=== PATIENT | female | born 1955 | race Caucasian/White ===

== ENCOUNTER 2017-02-06 16:55 | Inpatient (IN) | payer OTHER, MEDICAID ==
[~2017-02-06] VITALS: Ht 152.4 cm; Wt 65.0 kg
[~2017-02-06 16:55] MED LIST: AMBIEN10 MG PO; ATIVAN1 MG PO; ATIVAN2 MG PO; BENADRYL25 MG PO; CELEXA40 MG PO; CIPROFLOXACIN500 MG PO; CLARITIN-D 12 H1 TAB PO; DITROPAN5 MG PO; FERROUS SULFAT325 M1 PO; FLEXERIL10 MG PO; FLONASE ALLERG9.9 ML NAS; MOTRIN800 MG PO; NEURONTIN400 MG PO; NEURONTIN600 MG PO; NORFLEX100 MG PO; PRAVASTATIN SOD40 MG PO; PREDNISONE10 MG PO; TRAMADOL HCL50 MG PO; TRAMADOL50 MG PO; TRAZADONE HYDR100 MG PO; ULTRAM50 MG PO; VISTARIL50 MG PO
[2017-02-06 18:00] LABS: BASO % 0.3 % (0.0-1.0); EOS # 0.1 10*3/uL (0.0-0.4); EOS % 1.3 % (1.0-4.0); HEMATOCRIT 44.8 % (37.0-47.0); HEMOGLOBIN 15.1 g/dl (12.0-16.0); LYMPH # 2.6 10*3/uL (1.3-4.4); LYMPH % 43.8 % (27.0-41.0); MEAN CELL VOLUME 102.3 fl (81.0-99.0); MEAN CORPUSCULAR HGB 34.5 pg (27.0-31.0); MEAN CORPUSCULAR HGB CONC 33.7 g/dl (33.0-37.0); MEAN PLATELET VOLUME 11.3 fl (9.6-12.3); MONO # 0.4 10*3/uL (0.1-1.0); MONO % 7.4 % (3.0-9.0); NEUT # 2.8 10*3/uL (2.3-7.9); PLATELET COUNT AUTOMATED 185 10*3/uL (130-400); RED BLOOD COUNT 4.38 10*6/uL (4.10-5.10); RED CELL DISTRI WIDTH 13.2 % (0-14.5); WHITE BLOOD COUNT 5.9 10*3/uL (4.8-10.8)
[2017-02-06 18:15] LABS: PROTHROMBIN TIME 10.1 SECONDS (9.0-12.4)
[2017-02-06 18:16] LABS: ALBUMIN 3.4 gm/dl (3.1-4.5); ALKALINE PHOSPHATASE 112 U/L (45-117); BILIRUBIN, TOTAL 0.5 mg/dl (0.2-1.0); BUN 19 mg/dl (7-24); C-REACTIVE PROTEIN 0.68 MG/DL (0-0.3); CARBON DIOXIDE 26 mmol/L (21-32); CHLORIDE 106 mmol/L (98-107); CPK 30 U/L (26-192); EST GLOM FILT AFRICAN AMERICAN > 60 ml/min; GLUCOSE 95 mg/dL (65-99); MAGNESIUM 2.5 mg/dL (1.5-2.1); POTASSIUM 4.5 mmol/L (3.5-5.1); SGOT/AST 10 IU/L (3-35); SGPT/ALT 17 U/L (12-78); SODIUM 141 mmol/L (136-145); TOTAL PROTEIN 6.9 gm/dL (6.4-8.2)
[2017-02-06 18:17] LABS: CKMB < 0.5 ng/ml (0.5-3.6); TROPONIN I < 0.015 ng/ml (<0.045)
[2017-02-06] MEDS ORDERED: CARVEDILOL6.25 MG PO (18:28)
[2017-02-06 18:38] LABS: BILIRUBIN NEGATIVE (NEGATIVE); BLOOD NEGATIVE (NEGATIVE); CLARITY SL CLOUDY (CLEAR); COLOR YELLOW (YELLOW); GLUCOSE NEGATIVE (NEGATIVE); KETONE NEGATIVE (NEGATIVE); LEUKO ESTERASE TRACE (NEGATIVE); NITRITE NEGATIVE (NEGATIVE); PROTEIN TRACE (NEGATIVE)
[2017-02-06 18:45] LABS: BACTERIA 4+; EPITHELIAL CELLS 20-25; URINE REFLEX COMMENT YES (NO)
[2017-02-06] MEDS ORDERED: BENADRYL ALLERG25 M5 PO (22:37)
[2017-02-07 00:57] LABS: CPK 38 U/L (26-192)
[2017-02-07 01:02] LABS: CKMB < 0.5 ng/ml (0.5-3.6); TROPONIN I < 0.015 ng/ml (<0.045)
[2017-02-07 06:38] LABS: HEMATOCRIT 43.8 % (37.0-47.0); HEMOGLOBIN 14.8 g/dl (12.0-16.0); LYMPH # 0.6 10*3/uL (1.3-4.4); LYMPH % 18.7 % (27.0-41.0); MEAN CELL VOLUME 102.6 fl (81.0-99.0); MEAN CORPUSCULAR HGB 34.7 pg (27.0-31.0); MEAN CORPUSCULAR HGB CONC 33.8 g/dl (33.0-37.0); MEAN PLATELET VOLUME 11.2 fl (9.6-12.3); MONO # 0.1 10*3/uL (0.1-1.0); MONO % 1.7 % (3.0-9.0); NEUT # 2.4 10*3/uL (2.3-7.9); NEUT % 79.3 % (47.0-73.0); PLATELET COUNT AUTOMATED 173 10*3/uL (130-400); RED BLOOD COUNT 4.27 10*6/uL (4.10-5.10); RED CELL DISTRI WIDTH 13.2 % (0-14.5)
[2017-02-07 06:52] LABS: CPK 29 U/L (26-192)
[2017-02-07 06:56] LABS: CKMB < 0.5 ng/ml (0.5-3.6); TROPONIN I < 0.015 ng/ml (<0.045)
[2017-02-07 06:57] LABS: HEMOGLOBIN A1c 5.2 % (4.8-5.6)
[2017-02-07 07:10] LABS: PROTHROMBIN TIME 10.2 SECONDS (9.0-12.4)
[2017-02-07 07:11] LABS: ALBUMIN 3.3 gm/dl (3.1-4.5); BUN 17 mg/dl (7-24); CARBON DIOXIDE 22 mmol/L (21-32); CHLORIDE 107 mmol/L (98-107); EST GLOM FILT AFRICAN AMERICAN > 60 ml/min; GLUCOSE 148 mg/dL (65-99); MAGNESIUM 2.7 mg/dL (1.5-2.1); PHOSPHOROUS 3.5 mg/dL (2.5-4.9); POTASSIUM 4.1 mmol/L (3.5-5.1); SGOT/AST 9 IU/L (3-35); SGPT/ALT 16 U/L (12-78); SODIUM 141 mmol/L (136-145)
[2017-02-07 07:18] LABS: ALKALINE PHOSPHATASE 111 U/L (45-117); BILIRUBIN, TOTAL 0.2 mg/dl (0.2-1.0); FREE T4 0.85 ng/dl (0.76-1.46); HDL CHOLESTEROL 50 mg/dl (40-60); TOTAL PROTEIN 6.7 gm/dL (6.4-8.2); TRIGLYCERIDES 72 mg/dl (<150); VLDL CHOLESTEROL 14 mg/dL (6-40)
[2017-02-07 07:22] LABS: CHOLESTEROL 202 mg/dL (<200); LDL CHOLESTEROL 138 mg/dL (9-159)
[2017-02-07 08:44] LABS: VITAMIN D, 25-HYDROXY 10.5 ng/mL (30-100)
[2017-02-07 08:45] LABS: FOLIC ACID 7.54 ng/mL (>5.38)
[2017-02-07 12:18] LABS: CKMB < 0.5 ng/ml (0.5-3.6); CPK 32 U/L (26-192); TROPONIN I < 0.015 ng/ml (<0.045)
[2017-02-08] MEDS ORDERED: B12,B-12,B 12500 MC1 PO (10:59)
[2017-02-08] MEDS ORDERED: D-1000 185 MG-11 TAB PO (10:59)
[2017-02-08] MEDS ORDERED: DOXYCYCLINE100 M3 PO (10:59)
[2017-02-08] MEDS ORDERED: MUCINEX ER600 MG PO (10:59)
[2017-02-08] MEDS ORDERED: PREDNISONE10 MG PO (10:59)
== END 2017-02-08 13:22 | disposition home or self-care (01) | DRG 193 ==
LOC: ED 16:55 → EDHOLD 19:03 → 5E 19:03
PROVIDERS: Emergency Medicine; Family Medicine
DX: J18.9 Pneumonia, unspecified organism (principal); G93.41 Metabolic encephalopathy; E44.0 Moderate protein-calorie malnutrition; G62.9 Polyneuropathy, unspecified; E83.41 Hypermagnesemia; F17.210 Nicotine dependence, cigarettes, uncomplicated; M79.7 Fibromyalgia; R82.71 Bacteriuria; E53.8 Deficiency of other specified B group vitamins; E55.9 Vitamin D deficiency, unspecified; D75.89 Other specified diseases of blood and blood-forming organs; Z98.84 Bariatric surgery status; Z98.891 History of uterine scar from previous surgery; Z83.3 Family history of diabetes mellitus; Z82.49 Family history of ischemic heart disease and other diseases of the circulatory system; Z80.1 Family history of malignant neoplasm of trachea, bronchus and lung; Z90.49 Acquired absence of other specified parts of digestive tract; Z90.710 Acquired absence of both cervix and uterus; Z79.899 Other long term (current) drug therapy; Z88.5 Allergy status to narcotic agent; Z88.6 Allergy status to analgesic agent; Z68.27 Body mass index [BMI] 27.0-27.9, adult; Z71.6 Tobacco abuse counseling

== ENCOUNTER → 2017-06-05 | Outpatient (CLI) | payer OTHER ==
[~2017-06-05] MED LIST changes: +B12,B-12,B 12500 MC1 PO; +BENADRYL ALLERG25 M5 PO; +CARVEDILOL6.25 MG PO; +D-1000 185 MG-11 TAB PO; +DOXYCYCLINE100 M3 PO; +MUCINEX ER600 MG PO
== END | disposition home or self-care (01) ==
LOC: MRI 09:56
DX: G89.29 Other chronic pain (principal); R42 Dizziness and giddiness; R51 Headache; Z84.89 Family history of other specified conditions

== ENCOUNTER 2017-10-26 11:32 | Emergency (ER) | payer SELFPAY ==
[~2017-10-26] VITALS: Ht 152.4 cm; Wt 59.0 kg
--- NOTE | ~2017-10-26 | EKG ---
[place], [place] ELECTROCARDIOGRAM REPORT NAME: KAELYN ELIAS UNIT #: [id number] ROOM: DOCTOR: HAYDEN HELTON,PHYLLIS BIRTHDATE: [birth year] DOS: 10/26/2017 TIME: 11:55 a.m. IMPRESSION: 1. Sinus rhythm. 2. Normal VA and QT intervals. PHYLLIS BLAKE MD CM:EKGRPT:ELECTROCARDIOGRAM REPORT [id number] PHYLLIS BLAKE MD
[2017-10-26 11:39] VITALS: BP 142/80
[2017-10-26 12:03] LABS: BASO % 0.4 % (0.0-1.0); EOS # 0.1 10*3/uL (0.0-0.4); HEMATOCRIT 46.8 % (37.0-47.0); HEMOGLOBIN 16.1 g/dl (12.0-16.0); LYMPH # 2.4 10*3/uL (1.3-4.4); LYMPH % 25.4 % (27.0-41.0); MEAN CELL VOLUME 97.5 fl (81.0-99.0); MEAN CORPUSCULAR HGB 33.5 pg (27.0-31.0); MEAN CORPUSCULAR HGB CONC 34.4 g/dl (33.0-37.0); MEAN PLATELET VOLUME 11.1 fl (9.6-12.3); MONO # 0.9 10*3/uL (0.1-1.0); MONO % 10.1 % (3.0-9.0); NEUT # 5.9 10*3/uL (2.3-7.9); NEUT % 62.9 % (47.0-73.0); PLATELET COUNT AUTOMATED 276 10*3/uL (130-400); RED CELL DISTRI WIDTH 13.4 % (0-14.5); WHITE BLOOD COUNT 9.3 10*3/uL (4.8-10.8)
[2017-10-26 12:14] LABS: BILIRUBIN 1+ (NEGATIVE); BLOOD TRACE-LYSED (NEGATIVE); CLARITY SL CLOUDY (CLEAR); COLOR YELLOW (YELLOW); GLUCOSE NEGATIVE (NEGATIVE); KETONE NEGATIVE (NEGATIVE); LEUKO ESTERASE NEGATIVE (NEGATIVE); NITRITE NEGATIVE (NEGATIVE); SPECIFIC GRAVITY >= 1.030 (1.005-1.030)
[2017-10-26 12:21] LABS: ALBUMIN 3.7 gm/dl (3.1-4.5); ALKALINE PHOSPHATASE 120 U/L (45-117); BUN 10 mg/dl (7-24); CHLORIDE 109 mmol/L (98-107); CREATININE 0.77 mg/dL (0.55-1.02); POTASSIUM 4.1 mmol/L (3.5-5.1); SGOT/AST 9 IU/L (3-35); SGPT/ALT 12 U/L (12-78); SODIUM 141 mmol/L (136-145); TOTAL PROTEIN 6.8 gm/dL (6.4-8.2)
[2017-10-26 12:29] LABS: TROPONIN I < 0.015 ng/ml (<0.045)
[2017-10-26 12:31] LABS: BACTERIA 1+; EPITHELIAL CELLS TNTC; MUCOUS 1+
[2017-10-26] MEDS ORDERED: CARAFATE1 GM/10 ML PO (14:56)
[2017-10-26] MEDS ORDERED: SUNMARK OMEPRAZ20 M1 PO (14:56)
== END 2017-10-26 15:07 | disposition home or self-care (01) ==
LOC: ED 11:32
PROVIDERS: Nurse Practitioner Family
DX: K29.00 Acute gastritis without bleeding (principal); R03.0 Elevated blood-pressure reading, without diagnosis of hypertension; F17.200 Nicotine dependence, unspecified, uncomplicated; Z98.84 Bariatric surgery status; Z98.890 Other specified postprocedural states; Z90.49 Acquired absence of other specified parts of digestive tract; Z88.5 Allergy status to narcotic agent; Z87.442 Personal history of urinary calculi; Z90.710 Acquired absence of both cervix and uterus

== ENCOUNTER 2017-11-07 12:52 | Emergency (ER) | payer MEDICAID ==
[~2017-11-07] VITALS: Ht 152.4 cm; Wt 59.0 kg
[~2017-11-07 12:52] MED LIST changes: +CARAFATE1 GM/10 ML PO; +SUNMARK OMEPRAZ20 M1 PO
[2017-11-07 13:29] LABS: BASO % 0.5 % (0.0-1.0); EOS # 0.1 10*3/uL (0.0-0.4); EOS % 0.9 % (1.0-4.0); HEMATOCRIT 47.7 % (37.0-47.0); HEMOGLOBIN 16.3 g/dl (12.0-16.0); LYMPH # 2.3 10*3/uL (1.3-4.4); LYMPH % 27.5 % (27.0-41.0); MEAN CELL VOLUME 97.5 fl (81.0-99.0); MEAN CORPUSCULAR HGB 33.3 pg (27.0-31.0); MEAN CORPUSCULAR HGB CONC 34.2 g/dl (33.0-37.0); MEAN PLATELET VOLUME 11.1 fl (9.6-12.3); MONO # 0.6 10*3/uL (0.1-1.0); MONO % 6.7 % (3.0-9.0); NEUT # 5.4 10*3/uL (2.3-7.9); PLATELET COUNT AUTOMATED 316 10*3/uL (130-400); RED BLOOD COUNT 4.89 10*6/uL (4.10-5.10); RED CELL DISTRI WIDTH 13.4 % (0-14.5); WHITE BLOOD COUNT 8.5 10*3/uL (4.8-10.8)
[2017-11-07 13:38] LABS: ACT PARTIAL THROMBO TIME 27.1 SECONDS (20.8-31.5)
[2017-11-07 13:43] LABS: ALBUMIN 3.7 gm/dl (3.1-4.5); ALKALINE PHOSPHATASE 130 U/L (45-117); BUN 9 mg/dl (7-24); CHLORIDE 106 mmol/L (98-107); CREATININE 0.81 mg/dL (0.55-1.02); LIPASE 116 U/L (73-393); POTASSIUM 3.3 mmol/L (3.5-5.1); SGOT/AST 8 IU/L (3-35); SGPT/ALT 10 U/L (12-78); SODIUM 139 mmol/L (136-145); TOTAL PROTEIN 6.9 gm/dL (6.4-8.2)
[2017-11-08 11:30] VITALS: BP 144/70
== END 2017-11-08 16:01 | disposition short-term general hospital (02) ==
LOC: ED 12:52
PROVIDERS: Emergency Medicine
DX: R10.13 Epigastric pain (principal); R10.12 Left upper quadrant pain; E87.6 Hypokalemia; E83.41 Hypermagnesemia; F17.200 Nicotine dependence, unspecified, uncomplicated; M79.7 Fibromyalgia; Z90.49 Acquired absence of other specified parts of digestive tract; Z98.84 Bariatric surgery status; Z90.710 Acquired absence of both cervix and uterus; Z79.899 Other long term (current) drug therapy; Z88.6 Allergy status to analgesic agent

== ENCOUNTER 2018-04-08 12:17 | Inpatient (IN) | payer OTHER ==
[~2018-04-08] VITALS: Ht 152.4 cm; Wt 61.3 kg
[2018-04-08 12:32] VITALS: BP 132/69
[2018-04-08 12:41] LABS: BASO % 0.5 % (0.0-1.0); EOS # 0.1 10*3/uL (0.0-0.4); EOS % 0.9 % (1.0-4.0); HEMATOCRIT 46.3 % (37.0-47.0); HEMOGLOBIN 15.9 g/dl (12.0-16.0); LYMPH % 24.3 % (27.0-41.0); MEAN CELL VOLUME 94.5 fl (81.0-99.0); MEAN CORPUSCULAR HGB 32.4 pg (27.0-31.0); MEAN CORPUSCULAR HGB CONC 34.3 g/dl (33.0-37.0); MEAN PLATELET VOLUME 11.3 fl (9.6-12.3); MONO # 0.6 10*3/uL (0.1-1.0); MONO % 7.5 % (3.0-9.0); NEUT # 5.4 10*3/uL (2.3-7.9); NEUT % 66.4 % (47.0-73.0); PLATELET COUNT AUTOMATED 316 10*3/uL (130-400); RED CELL DISTRI WIDTH 14.6 % (0-14.5); WHITE BLOOD COUNT 8.2 10*3/uL (4.8-10.8)
[2018-04-08 12:50] LABS: ACT PARTIAL THROMBO TIME 26.2 SECONDS (20.8-31.5); INTERNATIONAL NORM RATIO 0.9 (2.0-3.5)
[2018-04-08 12:59] LABS: ALBUMIN 3.8 gm/dl (3.1-4.5); ALKALINE PHOSPHATASE 126 U/L (45-117); BUN 8 mg/dl (7-24); CHLORIDE 110 mmol/L (98-107); CREATININE 0.65 mg/dL (0.55-1.02); POTASSIUM 3.9 mmol/L (3.5-5.1); SGOT/AST 13 IU/L (3-35); SGPT/ALT 13 U/L (12-78); SODIUM 140 mmol/L (136-145); TOTAL PROTEIN 7.2 gm/dL (6.4-8.2)
[2018-04-08 13:01] LABS: TROPONIN I < 0.015 ng/ml (<0.045)
[2018-04-08 13:18] VITALS: BP 146/80
[2018-04-08] MEDS ORDERED: NEXIUM10 MG PO (13:19)
[2018-04-08] MEDS ORDERED: SEROQUEL XR150 MG PO (13:19)
[2018-04-08] MEDS ORDERED: CARAFATE1 GM/10 ML PO (13:20)
[2018-04-08 14:20] VITALS: BP 96/69
[2018-04-08 16:00] VITALS: BP 144/71
== END 2018-04-08 18:40 | disposition short-term general hospital (02) | DRG 282 ==
LOC: ED 12:17 → EDHOLD 13:27 → 4E 13:31 → ICCU 16:22
PROVIDERS: Emergency Medicine
DX: I21.9 Acute myocardial infarction, unspecified (principal); G62.9 Polyneuropathy, unspecified; M79.7 Fibromyalgia; F17.200 Nicotine dependence, unspecified, uncomplicated; R25.1 Tremor, unspecified; Z79.899 Other long term (current) drug therapy; Z90.710 Acquired absence of both cervix and uterus; Z87.442 Personal history of urinary calculi; Z90.49 Acquired absence of other specified parts of digestive tract; Z88.5 Allergy status to narcotic agent; Z80.1 Family history of malignant neoplasm of trachea, bronchus and lung; Z82.49 Family history of ischemic heart disease and other diseases of the circulatory system; Z83.3 Family history of diabetes mellitus; Z98.84 Bariatric surgery status

== ENCOUNTER → 2018-05-20 | Outpatient (CLI) | payer OTHER ==
[~2018-05-20] MED LIST changes: +NEXIUM10 MG PO; +SEROQUEL XR150 MG PO
[2018-05-20 10:52] LABS: ALKALINE PHOSPHATASE 118 U/L (45-117); BUN 14 mg/dl (7-24); CHLORIDE 110 mmol/L (98-107); CHOLESTEROL 137 mg/dL (<200); CPK 128 U/L (26-192); HDL CHOLESTEROL 51 mg/dl (40-60); LDL CHOLESTEROL 61 mg/dL (9-159); POTASSIUM 3.6 mmol/L (3.5-5.1); SGOT/AST 13 IU/L (3-35); SGPT/ALT 25 U/L (12-78); SODIUM 145 mmol/L (136-145); TOTAL PROTEIN 7.2 gm/dL (6.4-8.2); TRIGLYCERIDES 124 mg/dl (<150); VLDL CHOLESTEROL 25 mg/dL (6-40)
== END ==
LOC: LAB 09:48
PROVIDERS: Family Medicine
DX: E78.00 Pure hypercholesterolemia, unspecified (principal); I10 Essential (primary) hypertension; R07.9 Chest pain, unspecified

== ENCOUNTER 2018-07-02 15:27 | Emergency (ER) | payer OTHER ==
[~2018-07-02] VITALS: Ht 152.4 cm; Wt 53.5 kg
[2018-07-02 15:29] VITALS: BP 119/85
[2018-07-02 15:42] LABS: BASO # 0.1 10*3/uL (0.0-0.1); BASO % 0.5 % (0.0-1.0); EOS # 0.1 10*3/uL (0.0-0.4); EOS % 0.7 % (1.0-4.0); HEMATOCRIT 50.8 % (37.0-47.0); HEMOGLOBIN 17.1 g/dl (12.0-16.0); LYMPH # 2.1 10*3/uL (1.3-4.4); LYMPH % 20.5 % (27.0-41.0); MEAN CELL VOLUME 93.9 fl (81.0-99.0); MEAN CORPUSCULAR HGB 31.6 pg (27.0-31.0); MEAN CORPUSCULAR HGB CONC 33.7 g/dl (33.0-37.0); MEAN PLATELET VOLUME 12.4 fl (9.6-12.3); MONO % 9.8 % (3.0-9.0); NEUT # 6.9 10*3/uL (2.3-7.9); NEUT % 68.2 % (47.0-73.0); PLATELET COUNT AUTOMATED 219 10*3/uL (130-400); RED BLOOD COUNT 5.41 10*6/uL (4.10-5.10); RED CELL DISTRI WIDTH 12.6 % (0-14.5); WHITE BLOOD COUNT 10.1 10*3/uL (4.8-10.8)
[2018-07-02 15:56] LABS: ALKALINE PHOSPHATASE 123 U/L (45-117); BUN 14 mg/dl (7-24); CHLORIDE 104 mmol/L (98-107); CREATININE 0.85 mg/dL (0.55-1.02); LIPASE 110 U/L (73-393); POTASSIUM 4.2 mmol/L (3.5-5.1); SGOT/AST 11 IU/L (3-35); SGPT/ALT 16 U/L (12-78); SODIUM 139 mmol/L (136-145); TOTAL PROTEIN 7.5 gm/dL (6.4-8.2)
[2018-07-02] MEDS ORDERED: ZOFRAN4 MG PO (18:34)
== END 2018-07-02 18:43 | disposition home or self-care (01) ==
LOC: ED 15:27
PROVIDERS: Nurse Practitioner Family
DX: R10.32 Left lower quadrant pain (principal); R11.0 Nausea; K51.90 Ulcerative colitis, unspecified, without complications; F17.200 Nicotine dependence, unspecified, uncomplicated; Z88.5 Allergy status to narcotic agent; Z79.899 Other long term (current) drug therapy; Z90.49 Acquired absence of other specified parts of digestive tract; Z90.710 Acquired absence of both cervix and uterus

== ENCOUNTER 2018-12-26 21:46 | Emergency (ER) | payer OTHER ==
[~2018-12-26 21:46] MED LIST changes: +ZOFRAN4 MG PO
[2018-12-26 21:59] VITALS: BP 136/68
[2018-12-26 23:17] LABS: ALBUMIN 3.8 gm/dl (3.1-4.5); ALKALINE PHOSPHATASE 112 U/L (45-117); BUN 19 mg/dl (7-24); CHLORIDE 108 mmol/L (98-107); CREATININE 0.81 mg/dL (0.55-1.02); LIPASE 183 U/L (73-393); POTASSIUM 4.4 mmol/L (3.5-5.1); SGOT/AST 21 IU/L (3-35); SGPT/ALT 27 U/L (12-78); SODIUM 144 mmol/L (136-145); TOTAL PROTEIN 6.7 gm/dL (6.4-8.2)
[2018-12-26 23:25] LABS: BASO % 0.3 % (0.0-1.0); EOS % 0.2 % (1.0-4.0); HEMATOCRIT 41.1 % (37.0-47.0); HEMOGLOBIN 13.8 g/dl (12.0-16.0); LYMPH % 8.3 % (27.0-41.0); MEAN CORPUSCULAR HGB 32.2 pg (27.0-31.0); MEAN CORPUSCULAR HGB CONC 33.6 g/dl (33.0-37.0); MEAN PLATELET VOLUME 10.9 fl (9.6-12.3); MONO # 0.7 10*3/uL (0.1-1.0); MONO % 6.2 % (3.0-9.0); NEUT # 9.6 10*3/uL (2.3-7.9); NEUT % 84.4 % (47.0-73.0); PLATELET COUNT AUTOMATED 273 10*3/uL (130-400); RED BLOOD COUNT 4.28 10*6/uL (4.10-5.10); RED CELL DISTRI WIDTH 12.7 % (0-14.5); WHITE BLOOD COUNT 11.4 10*3/uL (4.8-10.8)
[2018-12-26 23:27] LABS: BILIRUBIN NEGATIVE (NEGATIVE); BLOOD NEGATIVE (NEGATIVE); CLARITY SL CLOUDY (CLEAR); COLOR YELLOW (YELLOW); GLUCOSE NEGATIVE (NEGATIVE); KETONE TRACE (NEGATIVE); LEUKO ESTERASE 1+ (NEGATIVE); NITRITE NEGATIVE (NEGATIVE); SPECIFIC GRAVITY >= 1.030 (1.005-1.030); UROBILINOGEN 0.2 E.U./dl (0.2-1.0)
[2018-12-26 23:45] LABS: EPITHELIAL CELLS TNTC
[2018-12-26 23:46] LABS: BACTERIA 1+; RBC 0-2 rbc/hpf (0-2); YEAST 1+
== END 2018-12-27 01:21 | disposition home or self-care (01) ==
LOC: ED 21:46
PROVIDERS: Physician Assistant
DX: R10.12 Left upper quadrant pain (principal); R10.13 Epigastric pain; R11.2 Nausea with vomiting, unspecified; F17.200 Nicotine dependence, unspecified, uncomplicated; Z88.5 Allergy status to narcotic agent; Z79.899 Other long term (current) drug therapy; Z90.710 Acquired absence of both cervix and uterus; Z87.442 Personal history of urinary calculi; Z90.49 Acquired absence of other specified parts of digestive tract; Z93.1 Gastrostomy status

== ENCOUNTER → 2019-07-29 | Outpatient (CLI) | payer MEDICARE ==
[2019-07-29 15:24] LABS: HEMATOCRIT 44.4 % (37.0-47.0); HEMOGLOBIN 14.4 g/dl (12.0-16.0); MEAN CELL VOLUME 94.5 fl (81.0-99.0); MEAN CORPUSCULAR HGB 30.6 pg (27.0-31.0); MEAN CORPUSCULAR HGB CONC 32.4 g/dl (33.0-37.0); MEAN PLATELET VOLUME 11.5 fl (9.6-12.3); RED BLOOD COUNT 4.7 10*6/uL (4.10-5.10); RED CELL DISTRI WIDTH 13.2 % (0-14.5); WHITE BLOOD COUNT 6.1 10*3/uL (4.8-10.8)
[2019-07-29 15:40] LABS: ALKALINE PHOSPHATASE 106 U/L (45-117); BUN 12 mg/dl (7-24); CHLORIDE 111 mmol/L (98-107); CHOLESTEROL 160 mg/dL (<200); CREATININE 0.73 mg/dL (0.55-1.02); HDL CHOLESTEROL 54 mg/dl (40-60); LDL CHOLESTEROL 72 mg/dL (9-159); POTASSIUM 3.7 mmol/L (3.5-5.1); SGOT/AST 13 IU/L (3-35); SGPT/ALT 16 U/L (12-78); SODIUM 142 mmol/L (136-145); TRIGLYCERIDES 170 mg/dl (<150); VLDL CHOLESTEROL 34 mg/dL (6-40)
[2019-07-29 15:41] LABS: FREE T4 0.85 ng/dl (0.76-1.46)
[2019-07-29 18:01] LABS: VITAMIN D, 25-HYDROXY 25.1 ng/mL (30-100)
== END | disposition home or self-care (01) ==
LOC: LAB 14:52
PROVIDERS: Family Medicine
DX: K59.00 Constipation, unspecified (principal); K58.9 Irritable bowel syndrome, unspecified; E55.9 Vitamin D deficiency, unspecified; I10 Essential (primary) hypertension; R53.83 Other fatigue; F41.1 Generalized anxiety disorder; K05.10 Chronic gingivitis, plaque induced; E74.00 Glycogen storage disease, unspecified; G62.9 Polyneuropathy, unspecified

== ENCOUNTER 2019-09-25 14:27 | Inpatient (IN) | payer MEDICARE ==
[~2019-09-25] VITALS: Ht 152.4 cm; Wt 57.8 kg
--- NOTE | ~2019-09-25 | WRIGHTHP ---
[place], [place] PATIENT HISTORY AND PHYSICAL EXAM NAME: KAELYN ELIAS [facility] #: [id number] UNIT #: [id number] ROOM: 515 DOCTOR: PALMER MOSS MD BIRTHDATE: [birth year] DOS: 09/25/2019 HISTORY OF PRESENT ILLNESS: The patient is a 63-year-old female with a past medical history of: 1. Ulcerative colitis. 2. Bariatric gastric bypass surgery for weight loss. 3. Nicotine smoke dependence. 4. Fibromyalgia. 5. Vitamin D and B12 deficiency. 6. History of kidney stones. 7. Major depression, recurrent, mild. 8. Hiatal hernia. 9. History of osteoarthritis. 10. Mixed hyperlipidemia. 11. History of cholecystectomy in 2006. The patient presented with right lower quadrant pains since Sunday that is 5 days and she was found to have acute diverticulitis on CT scan of the abdomen involving the descending colon in the right flank area and recommended for admission and further management. The patient started on antibiotics and she is feeling somewhat better. The patient is feeling somewhat nauseous, had abdominal pains, no diarrhea, but she did have constipation. The patient says she also has a history of ulcerative colitis for which she has been evaluated at [facility] and medical treatment is being considered, but not started. No chest pain or shortness of breath, no GI or urinary symptoms, but some gradual weight loss. REVIEW OF SYSTEMS: RESPIRATORY: No increasing shortness of breath. GASTROINTESTINAL: The patient with right lower quadrant pains. Recent nausea and poor appetite. CARDIOVASCULAR SYSTEM: No chest pains or palpitations. LUNGS: No increasing shortness of breath or wheezing. FAMILY HISTORY: Noncontributory. HOME MEDICATIONS: Protonix, Benadryl. The patient was taking Nexium at home. PHYSICAL EXAMINATION: GENERAL: Alert, oriented x 3, asthenic, and in no visible distress. The patient with generalized weakness and asthenia. VITAL SIGNS: Blood pressure 126/64, heart rate 63 beats per minute, breathing 18 times per minute, temperature 98 degrees Fahrenheit. HEENT AND NECK: Extraocular movements are intact. Sclerae are anicteric. Oral mucosa is moist and clean. No obvious facial weakness. Neck is supple without any lymphadenopathy. No thyromegaly. No JVD. No carotid arterial bruits. LUNGS: Clear to auscultation. No wheezing. No rhonchi. CARDIOVASCULAR SYSTEM: Heart rate is regular in rate and rhythm. S1 and S2 normally audible. No significant murmur or any other abnormal cardiac sounds. [place], [place] PATIENT HISTORY AND PHYSICAL EXAM NAME: KAELYN ELIAS UNIT #: [id number] ROOM: [facility] DOCTOR: PALMER MOSS MD BIRTHDATE: [birth year] ABDOMEN: Some mild abdominal discomfort, especially in the right lower quadrant on palpation. No obvious organomegaly. EXTREMITIES: Without significant cyanosis or edema. Warm to touch. CENTRAL NERVOUS SYSTEM: Alert and oriented x 3. Cranial nerves II-XII are intact. Speech is normal. The patient is able to move all extremities. Normal muscle strength. Deep tendon reflexes are equal on both sides. Plantars were downgoing. LABORATORY DATA: No leukocytosis. Serum electrolytes are normal, bilirubin and liver enzymes. CT of the abdomen results as mentioned above. IMPRESSION AND PLAN: 1. Acute diverticulitis involving the descending colon to be treated with Flagyl and Zosyn and being treated for severe pain with Dilaudid as needed. The patient is starting to feel slightly better and she is given diet as tolerated. 2. History of ulcerative colitis, being studied at [facility] for treatment. 3. Nausea treated and followed. 4. Mixed hyperlipidemia, to be followed and treated. 5. Generalized weakness and adult failure to thrive. The patient to work with Physical Therapy. PALMER MOSS MD CM:HISPHYS:PATIENT HISTORY AND PHYSICAL EXAMINATION [id number] PALMER MOSS MD 09/26/19 1337 interface
--- NOTE | ~2019-09-25 | DS ---
[place], [place] DISCHARGE SUMMARY NAME: KAELYN ELIAS UNIT #: [id number] ROOM: 515 DOCTOR: PALMER MOSS MD BIRTHDATE: [birth year] DOS: 09/29/2019 DISCHARGE DIAGNOSES: 1. Acute diverticulitis of the descending colon. 2. The patient signed out against medical advice before she got completed a GI workup. 3. Mild segmental colitis on CT scan of the abdomen with suspicion of inflammatory bowel disease. Suspicion of ulcerative colitis. The patient was being worked up at [facility]. 4. Mixed hyperlipidemia. 5. Generalized weakness, adult failure to thrive. 6. Bariatric and gastric bypass surgery for weight loss. 7. Nicotine smoke dependence. 8. Fibromyalgia. 9. Vitamin D and B12 deficiency. 10. History of kidney stones. 11. Major depression, recurrent, mild. 12. Hiatal hernia. 13. History of osteoarthritis. 14. History of cholecystectomy in 2006. The patient was found to have acute diverticulitis involving the descending colon on the CT of the abdomen as well as suspicion of mild segmental colitis that is ulcerative colitis and she was undergoing colonoscopy later today but before that she left against medical advice. 15. Persistent diarrhea and weight loss, still requires worked up. 16. Mixed hyperlipidemia, treated and followed. 17. Generalized anxiety disorder. 18. Generalized weakness and adult failure to thrive. The patient was kept on physical therapy. 19. Nicotine smoke dependence. The patient encouraged to stop smoking cigarettes. LABORATORY DATA: Serum electrolytes were normal on the last test. CBC was also normal except for mild leukopenia with total white cell count of 4000. CEA normal at 1.4. CT scan of the abdomen showing descending colon diverticulitis. The patient was on ondansetron, Tylenol, Protonix, metronidazole, Zosyn, hydromorphone, and diphenhydramine prior to leaving against medical advice at [facility]. [place], [place] DISCHARGE SUMMARY NAME: KAELYN ELIAS UNIT #: [id number] ROOM: [facility] DOCTOR: PALMER MOSS MD BIRTHDATE: [birth year] PALMER MOSS MD CM:INKHIL [id number] PALMER MOSS MD 09/29/19 1631 interface
--- NOTE | ~2019-09-25 | PR ---
[place], [place] PROGRESS NOTE NAME: KAELYN ELIAS [facility] #: [id number] UNIT #: [id number] ROOM: 515 DOCTOR: FACUNDO CASTELLANO MD BIRTHDATE: [birth year] DOS: 09/28/2019 SUBJECTIVE: The patient is doing better, but continues to have diarrhea and abdominal discomfort. OBJECTIVE: VITAL SIGNS: Graphic trend shows a pressure 133/65, pulse of 71, respirations 18, and temperature 97.7. LUNGS: Clear. HEART: Regular. ABDOMEN: Obese, soft, some diffuse tenderness present. EXTREMITIES: Without any edema. LABORATORY DATA: CEA was 1.4. CT of the abdomen and pelvis does not show any more evidence of colitis or diverticulitis. Previously found positive findings in the CT scan has resolved. White cell count is 4.0, hemoglobin 13.1. BMP: Glucose 83, BUN 9, creatinine 0.62. Electrolytes are normal. ASSESSMENT AND PLAN: Diarrhea with abdominal pain with acute diverticulitis on admission, which seems to be resolving but the patient continues to have diarrhea, so the possibility of inflammatory bowel disease is being raised. The patient will undergo colonoscopy by Dr. Collado tomorrow. She is agreeable to have it done. Right now continue home medications. We did try to request records from [facility]. As per the patient, no colonoscopy was performed at [place]. FACUNDO CASTELLANO MD CM:PNTRANS [id number] FACNUDO CASTELLANO MD 09/28/19 1413 interface
--- NOTE | ~2019-09-25 | PR ---
[place], [place] PROGRESS NOTE [id number] UNIT #: [id number] ROOM: 515 DOCTOR: FACUNDO CASTELLANO MD BIRTHDATE: [birth year] DOS: SUBJECTIVE: The patient is doing fine without any complaints this morning. OBJECTIVE: VITAL SIGNS: Graphic trend shows a pressure of 118/61, pulse of 64, respirations 18, temperature 97.8. LUNGS: Clear. HEART: Regular. ABDOMEN: Soft, some diffuse tenderness and more tenderness in the right lower quadrant. EXTREMITIES: Without any edema. CT of the abdomen and pelvis had shown right-sided diverticulitis with possibility of an infiltrative neoplastic lesion. ASSESSMENT AND PLAN: 1. This is a patient who comes in with acute abdominal pain with possibility of right-sided diverticulitis. The patient is on IV antibiotics, which are being continued. 2. Increased pain. We will recheck a CT of the abdomen and pelvis to rule out an ongoing abscess formation. Also, consult Dr. Collado for a colonoscopy. She had recent workup at [facility], we will get a copy of the report from there. A CEA is also being ordered today. FACUNDO CASTELLANO MD CM:PNTRANS [phone] FACUNDO CASTELLANO MD 09/27/19 1317 interface
[2019-09-25 14:27] VITALS: BP 143/80
[2019-09-25 14:53] LABS: BASO % 0.5 % (0.0-1.0); EOS # 0.1 10*3/uL (0.0-0.4); EOS % 0.6 % (1.0-4.0); HEMATOCRIT 47.6 % (37.0-47.0); HEMOGLOBIN 15.9 g/dl (12.0-16.0); LYMPH % 25.2 % (27.0-41.0); MEAN CELL VOLUME 95.8 fl (81.0-99.0); MEAN CORPUSCULAR HGB CONC 33.4 g/dl (33.0-37.0); MEAN PLATELET VOLUME 11.3 fl (9.6-12.3); MONO # 0.6 10*3/uL (0.1-1.0); MONO % 7.7 % (3.0-9.0); NEUT # 5.2 10*3/uL (2.3-7.9); NEUT % 65.6 % (47.0-73.0); PLATELET COUNT AUTOMATED 275 10*3/uL (130-400); RED BLOOD COUNT 4.97 10*6/uL (4.10-5.10); RED CELL DISTRI WIDTH 13.5 % (0-14.5); WHITE BLOOD COUNT 7.9 10*3/uL (4.8-10.8)
--- NOTE | 2019-09-25 14:58 | NUR ---
PATIENT DENIES ANY WOUNDA &OX4.
--- NOTE | 2019-09-25 14:59 | NUR ---
LBM THIS MORNING.
[2019-09-25 15:07] LABS: ALBUMIN 3.9 gm/dl (3.1-4.5); ALKALINE PHOSPHATASE 110 U/L (45-117); BUN 9 mg/dl (7-24); CHLORIDE 109 mmol/L (98-107); CREATININE 0.84 mg/dL (0.55-1.02); LIPASE 140 U/L (73-393); POTASSIUM 3.8 mmol/L (3.5-5.1); SGOT/AST 11 IU/L (3-35); SGPT/ALT 14 U/L (12-78); SODIUM 140 mmol/L (136-145); TOTAL PROTEIN 7.3 gm/dL (6.4-8.2)
[2019-09-25 15:16] LABS: ACT PARTIAL THROMBO TIME 26.6 SECONDS (20.0-32.1); INTERNATIONAL NORM RATIO 0.9 (2.0-3.5)
--- NOTE | 2019-09-25 19:03 | NUR ---
REPORT GIVEN TO KOBY PEREIRA.
[2019-09-25 19:16] VITALS: BP 141/73
[2019-09-25 21:58] VITALS: BP 145/68
--- NOTE | 2019-09-25 21:58 | NUR ---
Time: 2157 A 63 year old FEMALE admitted to 5E under services of DR. AJAY HELTON,PALMER Rojas Pt. arrived via stretcher from ER. Chief complaint: ACUTE DIVERTICULITIS OF INTESTINE. WILLIAM LIM
--- NOTE | 2019-09-25 22:10 | NUR ---
NOTIFIED DR. MOSS OF ADMISSION AND ORDERS RECEIVED.
[2019-09-25] MEDS ORDERED: NEXIUM20 M1 PO (22:24)
[2019-09-25] MEDS ORDERED: BENADRYL ALLERG25 M5 PO (22:25)
[2019-09-25 22:30] LABS: BILIRUBIN NEGATIVE (NEGATIVE); BLOOD NEGATIVE (NEGATIVE); CLARITY SL CLOUDY (CLEAR); COLOR YELLOW (YELLOW); GLUCOSE NEGATIVE (NEGATIVE); KETONE NEGATIVE (NEGATIVE); LEUKO ESTERASE NEGATIVE (NEGATIVE); NITRITE NEGATIVE (NEGATIVE); UROBILINOGEN 0.2 E.U./dl (0.2-1.0)
[2019-09-25 22:42] LABS: EPITHELIAL CELLS 45-50
[2019-09-25 22:43] LABS: BACTERIA 1+; RBC 0-2 rbc/hpf (0-2); WBC 0-2 wbc/hpf (0-5); YEAST 1+
[2019-09-26] VITALS: BP 135/62
--- NOTE | 2019-09-26 00:02 | NUR ---
PRN BENADRYL FOR SLEEP GIVEN PER REQUEST. PRN IV DILAUDID GIVEN PER ORDER FOR C/O RIGHT QUADRANT ABDOMINAL PAIN. WILL MONITOR FOR EFFECTIVENESS.
--- NOTE | 2019-09-26 00:50 | NUR ---
PER PATIENT PRN DILAUDID EFFECTIVE.
--- NOTE | 2019-09-26 01:47 | NUR ---
24 HR chart check completed.
[2019-09-26 07:02] LABS: BASO % 0.6 % (0.0-1.0); EOS # 0.1 10*3/uL (0.0-0.4); EOS % 1.6 % (1.0-4.0); HEMATOCRIT 44.5 % (37.0-47.0); HEMOGLOBIN 14.6 g/dl (12.0-16.0); LYMPH # 2.3 10*3/uL (1.3-4.4); LYMPH % 37.2 % (27.0-41.0); MEAN CELL VOLUME 95.3 fl (81.0-99.0); MEAN CORPUSCULAR HGB 31.3 pg (27.0-31.0); MEAN CORPUSCULAR HGB CONC 32.8 g/dl (33.0-37.0); MEAN PLATELET VOLUME 11.3 fl (9.6-12.3); MONO # 0.6 10*3/uL (0.1-1.0); MONO % 9.7 % (3.0-9.0); NEUT # 3.2 10*3/uL (2.3-7.9); NEUT % 50.6 % (47.0-73.0); PLATELET COUNT AUTOMATED 267 10*3/uL (130-400); RED BLOOD COUNT 4.67 10*6/uL (4.10-5.10); RED CELL DISTRI WIDTH 13.2 % (0-14.5); WHITE BLOOD COUNT 6.3 10*3/uL (4.8-10.8)
[2019-09-26 08:00] VITALS: BP 134/72
--- NOTE | 2019-09-26 08:08 | NUR ---
PT MEDICATED WITH DILAUDID AT HER REQUEST FOR C/O PAIN TO RIGHT LOWER QUAD ABD PAIN.
--- NOTE | 2019-09-26 09:00 | NUR ---
Director Outpatient Services in to talk to patient. Patient states lives at home with her and 5 dogs, 4 chihuahuas and a pitbull. There are 15 steps in the home. Physician: Dr. Ariel Hoffmann [facility] Home health services: none Patient's level of ADLs: INDEPENDENT Patient has working utilities: yes DME: none Follow-up physician's appointment after d/c: she prefers to make her own follow up appt after discharge Does patient want to access PORTAL?: no Discharge plan discussed with patient her who is at her bedside. She lives at home with her . She is independent in her ADLs and ambulation. Discussed home health care services and she denies any home needs at this time. When medically stable she will be discharged to home. Her will provide transportation on discharge. LISA SEAY
[2019-09-26 12:00] VITALS: BP 126/64
--- NOTE | 2019-09-26 12:45 | NUR ---
PT MEDICATED WITH DILAUDID AT HER REQUEST FOR CONTINUED C/O RIGHT LOWER QUAD ABD PAIN.
--- NOTE | 2019-09-26 13:12 | NUR ---
PT STATED DILAUDID WAS EFFECTIVE IN EASING HER ABD PAIN.
--- NOTE | 2019-09-26 15:23 | NUR ---
PT MEDICATED WITH ZOFRAN 8MG IV FOR C/O NAUSEA.
[2019-09-26 16:00] VITALS: BP 127/63
--- NOTE | 2019-09-26 16:19 | NUR ---
PT STATED ZOFRAN WAS EFFECTIVE IN EASING HER NAUSEA.
[2019-09-26 20:00] VITALS: BP 118/73
--- NOTE | 2019-09-26 20:34 | NUR ---
PATIENT MEDICATED WITH PRN TYLENOL FOR C/O HEADACHE. WILL MONITOR FOR EFFECTIVENESS.
--- NOTE | 2019-09-26 21:05 | NUR ---
PATIENT STATED TYLENOL WAS HELPING HER HEADACHE. PATIENT MEDICATED WITH PRN DILAUDID FOR 7/10 ABDOMINAL PAIN AND PRN BENADRYL PER REQUEST FOR SLEEP. WILL MONITOR.
--- NOTE | 2019-09-26 22:00 | NUR ---
PER PATIENT PRN DILAUDID EFFECTIVE. PRN BENADRYL NOT EFFECTIVE AT THIS TIME.
[2019-09-27] VITALS: BP 118/61
--- NOTE | 2019-09-27 01:54 | NUR ---
24 HR chart check completed.
--- NOTE | 2019-09-27 06:17 | NUR ---
PATIENT SLEEPING BUT EASILY AROUSES TO VOICE. IV ANTIBIOTICS RUNNING. RESPIRATIONS EVEN AND UNLABORED. CALL LIGHT WITHIN REACH.
[2019-09-27 08:00] VITALS: BP 103/60
[2019-09-27 12:00] VITALS: BP 115/81
--- NOTE | 2019-09-27 14:33 | NUR ---
PT C/O OF RIGHT LOWER ABD PAIN RATING 7/10, PT TALKING TO AND LAUGHING ABOUT HIM RUNNING OVER HIS CELL PHONE NO S/S OF DISTRESS. PRN DILAUDID GIVEN PER REQUEST
--- NOTE | 2019-09-27 15:34 | NUR ---
MEDICATED WITH IV ZOFRAN ORDERED PER PT REQUEST FOR C/O NAUSEA.
[2019-09-27 16:00] VITALS: BP 126/75
--- NOTE | 2019-09-27 17:26 | NUR ---
MEDICATION EFFECTIVE FOR NAUSEA.
--- NOTE | 2019-09-27 19:15 | NUR ---
ARRIVED ON SHIFT, INTRODUCED TO PATIENT, BEDSIDE REPORT RECEIVED, NO NEEDS VOICED AT THIS TIME, WHITE BOARD UPDATED.
[2019-09-27 20:00] VITALS: BP 131/76
--- NOTE | 2019-09-27 20:32 | NUR ---
24 HR chart check completed.
--- NOTE | 2019-09-27 23:18 | NUR ---
PATIENT C/O PAIN 7/10 RIGHT CHEST WELL NAUSEA MEDICATED WITH DILAUDID AND ZOFRAN ORDERED.
[2019-09-28] VITALS: BP 142/61
--- NOTE | 2019-09-28 00:15 | NUR ---
GOOD EFFECT FROM DILAUDID AND ZOFRAN GIVEN X 1 HOUR AGO, EVIDENCED BY PATIENT RESTING QUIETLY WITH EYES CLOSED.
--- NOTE | 2019-09-28 02:00 | NUR ---
Patient sleeping. Respirations relaxed and easy. Siderails up x 2. [place] on, bed in low position, call light within reach. KALLIE BENITEZ
[2019-09-28 06:28] LABS: EOS # 0.1 10*3/uL (0.0-0.4); EOS % 3.3 % (1.0-4.0); HEMOGLOBIN 13.1 g/dl (12.0-16.0); LYMPH # 1.3 10*3/uL (1.3-4.4); MEAN CORPUSCULAR HGB 31.1 pg (27.0-31.0); MEAN CORPUSCULAR HGB CONC 32.8 g/dl (33.0-37.0); MEAN PLATELET VOLUME 10.9 fl (9.6-12.3); MONO # 0.4 10*3/uL (0.1-1.0); MONO % 8.8 % (3.0-9.0); NEUT # 2.2 10*3/uL (2.3-7.9); NEUT % 54.6 % (47.0-73.0); PLATELET COUNT AUTOMATED 217 10*3/uL (130-400); RED BLOOD COUNT 4.21 10*6/uL (4.10-5.10)
[2019-09-28 06:55] LABS: BUN 9 mg/dl (7-24); CHLORIDE 110 mmol/L (98-107); CREATININE 0.62 mg/dL (0.55-1.02); POTASSIUM 3.6 mmol/L (3.5-5.1); SODIUM 143 mmol/L (136-145)
[2019-09-28 08:00] VITALS: BP 133/65
--- NOTE | 2019-09-28 10:56 | NUR ---
MEDICATED WITH PRN IV DILAUDID AND ZOFRAN FOR ABDOMINAL PAIN AND NAUSEA.
[2019-09-28 12:00] VITALS: BP 138/77
--- NOTE | 2019-09-28 12:48 | NUR ---
PRN IV DILAUDID AND ZOFRAN BOTH EFFECTIVE, PER PATIENT.
--- NOTE | 2019-09-28 15:07 | NUR ---
MEDICATED WITH PRN IV ZOFRAN FOR NAUSEA/DRY HEAVES AND PRN IV DILAUDID FOR ABDOMINAL PAIN.
[2019-09-28 16:00] VITALS: BP 139/74
--- NOTE | 2019-09-28 16:18 | NUR ---
PRN IV ZOFRAN AND DILAUDID EFFECTIVE, PER PATIENT.
--- NOTE | 2019-09-28 17:16 | NUR ---
PATIENT REPORTS NAUSEA STARTING AGAIN.
[2019-09-28 20:00] VITALS: BP 130/59
--- NOTE | 2019-09-28 21:45 | NUR ---
Neurological: AAOX3 Respiratory: NONLABORED, ROOM AIR Breath sounds: DIMINISHED T/O Cough: NONE NOTED Cardiovascular: HRR, DENIES CP/PRESSURE, NO EDEMA, PPP Gastrointestinal: DIARRHEA:COLO PREP, C/O NAUSEA/ABDOMINAL PAIN HYPERACTIVE X4 QUADS, SOFT. Genito/Urinary: DENIES DYSURIA Musculoskeketal: SKIN INTACT, AMBULATORY W/ STEADY GAIT PATIENT RESTING IN BED WITH NO S/S OF DISTRESS NOTED. PATIETN C/O ABDOMINAL PAIN RATING A 8/10 AND NAUSEA. PRN ZOFRAN AND DILAUDID PROVIDED AND PATIENT TOLERATED WELL. BED IS LOW, LOCKED, AND CALL LIGHT IS WITHIN REACH. WILL CONTINUE TO MONITOR. BALDO BILLS A
[2019-09-29] VITALS: BP 133/62
--- NOTE | 2019-09-29 02:03 | NUR ---
PATIENT MEDICATED WITH PRN ZOFRAN PER REQUEST FOR NAUSEA. WILL MONITOR FOR EFFECTIVENESS.
--- NOTE | 2019-09-29 03:00 | NUR ---
PRN ZOFRAN APPEARS EFFECTIVE, PATIENT IS RESTING WITH EASY AND REGULAR RESPERS ON ROOM AIR. CALL LIGHT IS WITHIN REACH.
--- NOTE | 2019-09-29 07:51 | NUR ---
24 HR chart check completed.
[2019-09-29 08:00] VITALS: BP 118/78
--- NOTE | 2019-09-29 08:00 | NUR ---
Patient resting quietly with no c/o discomfort. Respirations easy and regular. Vital signs stable. No overt distress. BOBBY NORRIS
--- NOTE | 2019-09-29 10:30 | NUR ---
[employer] Worker in to see patient. No new needs or request at this time. She denies any home needs. When medically stable she will be discharged to home. She is having a colonoscopy today.
--- NOTE | 2019-09-29 13:00 | NUR ---
PT LEAVING AMA.
== END 2019-09-29 13:00 | disposition left against medical advice (07) | DRG 386 ==
LOC: ED 14:27 → EDHOLD 19:25 → 5E 19:25
PROVIDERS: Emergency Medicine; Internal Medicine; ADMIT Internal Medicine
DX: K51.90 Ulcerative colitis, unspecified, without complications (principal); K57.32 Diverticulitis of large intestine without perforation or abscess without bleeding; F33.9 Major depressive disorder, recurrent, unspecified; K59.00 Constipation, unspecified; Z98.84 Bariatric surgery status; E78.2 Mixed hyperlipidemia; M79.7 Fibromyalgia; E55.9 Vitamin D deficiency, unspecified; Z53.29 Procedure and treatment not carried out because of patient's decision for other reasons; E53.8 Deficiency of other specified B group vitamins; F41.1 Generalized anxiety disorder; K44.9 Diaphragmatic hernia without obstruction or gangrene; F17.210 Nicotine dependence, cigarettes, uncomplicated; M19.90 Unspecified osteoarthritis, unspecified site; R62.7 Adult failure to thrive; I25.2 Old myocardial infarction; Z90.49 Acquired absence of other specified parts of digestive tract; Z88.5 Allergy status to narcotic agent; Z90.710 Acquired absence of both cervix and uterus; Z98.891 History of uterine scar from previous surgery; Z83.3 Family history of diabetes mellitus; Z82.49 Family history of ischemic heart disease and other diseases of the circulatory system; Z80.1 Family history of malignant neoplasm of trachea, bronchus and lung; Z87.442 Personal history of urinary calculi

== ENCOUNTER 2021-01-15 19:55 | Emergency (ER) | payer MEDICARE ==
[~2021-01-15] VITALS: Ht 152.4 cm; Wt 54.4 kg
[~2021-01-15 19:55] MED LIST changes: +NEXIUM20 M1 PO
[2021-01-15 19:56] VITALS: BP 115/53
[2021-01-15 20:12] LABS: BASO % 0.5 % (0.0-1.0); EOS # 0.1 10*3/uL (0.0-0.4); EOS % 1.3 % (1.0-4.0); HEMATOCRIT 40.1 % (37.0-47.0); LYMPH # 2.3 10*3/uL (1.3-4.4); LYMPH % 28.6 % (27.0-41.0); MEAN CELL VOLUME 97.1 fl (81.0-99.0); MEAN CORPUSCULAR HGB CONC 31.9 g/dl (33.0-37.0); MEAN PLATELET VOLUME 9.9 fl (9.6-12.3); MONO # 0.8 10*3/uL (0.1-1.0); MONO % 9.6 % (3.0-9.0); NEUT # 4.8 10*3/uL (2.3-7.9); NEUT % 59.5 % (47.0-73.0); PLATELET COUNT AUTOMATED 324 10*3/uL (130-400); RED BLOOD COUNT 4.13 10*6/uL (4.10-5.10); RED CELL DISTRI WIDTH 12.8 % (0-14.5)
[2021-01-15 20:39] LABS: ALBUMIN 3.4 gm/dl (3.1-4.5); ALKALINE PHOSPHATASE 106 U/L (45-117); BUN 11 mg/dl (7-24); CHLORIDE 111 mmol/L (98-107); CREATININE 0.76 mg/dL (0.55-1.02); POTASSIUM 3.8 mmol/L (3.5-5.1); SGOT/AST 6 IU/L (3-35); SGPT/ALT 14 U/L (12-78); SODIUM 143 mmol/L (136-145); TOTAL PROTEIN 6.4 gm/dL (6.4-8.2)
[2021-01-15 20:51] LABS: BILIRUBIN Negative (Negative); BLOOD Negative (Negative); CLARITY Clear (Clear); COLOR Yellow (Yellow); GLUCOSE Negative (Negative); KETONE Negative (Negative); LEUKO ESTERASE Trace (Negative); NITRITE Negative (Negative); SPECIFIC GRAVITY <= 1.005 (1.001-1.030); UROBILINOGEN 0.2 E.U./dl (0.0-1.0)
[2021-01-15 21:03] LABS: WBC 0-2 wbc/hpf (0-5)
[2021-01-15 21:04] LABS: BACTERIA TRACE
== END 2021-01-15 21:35 | disposition home or self-care (01) ==
LOC: ED 19:55
PROVIDERS: Internal Medicine
DX: E16.2 Hypoglycemia, unspecified (principal); E78.00 Pure hypercholesterolemia, unspecified; F32.9 Major depressive disorder, single episode, unspecified; Z88.8 Allergy status to other drugs, medicaments and biological substances; Z88.5 Allergy status to narcotic agent; Z79.899 Other long term (current) drug therapy; Z90.49 Acquired absence of other specified parts of digestive tract; Z90.711 Acquired absence of uterus with remaining cervical stump; Z98.890 Other specified postprocedural states; Z87.442 Personal history of urinary calculi

== ENCOUNTER → 2021-06-28 | Outpatient (CLI) | payer OTHER | END | disposition home or self-care (01) | LOC: RAD 10:46 | PROVIDERS: ATTEND Nurse Practitioner Family | DX: M25.511 Pain in right shoulder (principal) ==

== ENCOUNTER → 2021-08-10 | Outpatient (CLI) | payer OTHER | END | disposition home or self-care (01) | LOC: MAMMO 14:04 | PROVIDERS: ATTEND Nurse Practitioner Family | DX: Z12.31 Encounter for screening mammogram for malignant neoplasm of breast (principal) ==

== ENCOUNTER 2022-05-18 16:44 | Inpatient (IN) | payer OTHER ==
[~2022-05-18] VITALS: Ht 152.4 cm; Wt 66.5 kg
[2022-05-18 16:50] VITALS: BP 114/65
[2022-05-18 17:27] LABS: BASO % 0.6 % (0.0-1.0); EOS # 0.1 10*3/uL (0.0-0.4); EOS % 0.9 % (1.0-4.0); HEMATOCRIT 44.1 % (37.0-47.0); LYMPH # 2.1 10*3/uL (1.3-4.4); MEAN CELL VOLUME 92.8 fl (81.0-99.0); MEAN CORPUSCULAR HGB 29.7 pg (27.0-31.0); MEAN PLATELET VOLUME 11.5 fl (9.6-12.3); MONO # 0.7 10*3/uL (0.1-1.0); MONO % 10.1 % (3.0-9.0); NEUT % 58.1 % (47.0-73.0); PLATELET COUNT AUTOMATED 271 10*3/uL (130-400); RED BLOOD COUNT 4.75 10*6/uL (4.10-5.10); RED CELL DISTRI WIDTH 13.7 % (0-14.5); WHITE BLOOD COUNT 6.8 10*3/uL (4.8-10.8)
[2022-05-18 17:38] LABS: ACT PARTIAL THROMBO TIME 31.6 SECONDS (20.0-32.1)
[2022-05-18 17:44] LABS: ALKALINE PHOSPHATASE 118 U/L (45-117); BUN 9 mg/dl (7-24); CHLORIDE 111 mmol/L (98-107); CREATININE 0.82 mg/dL (0.55-1.02); LIPASE 76 U/L (73-393); POTASSIUM 3.7 mmol/L (3.5-5.1); SGOT/AST 6 IU/L (3-35); SGPT/ALT 9 U/L (12-78); SODIUM 140 mmol/L (136-145); TOTAL PROTEIN 7.1 gm/dL (6.4-8.2)
[2022-05-18] MEDS ORDERED: ONDANSETRON HYDR4 MG PO (18:13)
[2022-05-18] MEDS ORDERED: ESOMEPRAZOLE MA40 M1 PO (18:14)
[2022-05-18] MEDS ORDERED: TOPIRAMATE100 M2 PO (18:14)
[2022-05-18] MEDS ORDERED: NORTRIPTYLINE H10 M1 PO (18:14)
[2022-05-18] MEDS ORDERED: LEVETIRACETAM500 MG PO (18:15)
[2022-05-18] MEDS ORDERED: CLONAZEPAM0.5 M2 PO (18:15)
[2022-05-19 01:08] VITALS: BP 112/50
[2022-05-19 05:43] LABS: BUN 10 mg/dl (7-24); CHLORIDE 114 mmol/L (98-107); CHOLESTEROL 202 mg/dL (<200); CREATININE 0.59 mg/dL (0.55-1.02); POTASSIUM 3.8 mmol/L (3.5-5.1); SGOT/AST 6 IU/L (3-35); SGPT/ALT 8 U/L (12-78); SODIUM 142 mmol/L (136-145); TOTAL PROTEIN 6.4 gm/dL (6.4-8.2); TRIGLYCERIDES 62 mg/dl (<150)
[2022-05-19 05:44] LABS: ALKALINE PHOSPHATASE 108 U/L (45-117)
[2022-05-19 05:49] LABS: FREE T4 0.83 ng/dl (0.76-1.46); LDL CHOLESTEROL 133 mg/dL (9-159); THYROID STIM HORMONE (HS) 0.512 uIU/ml (0.358-4.75)
[2022-05-19 06:13] LABS: BASO % 0.3 % (0.0-1.0); HEMATOCRIT 42.1 % (37.0-47.0); LYMPH # 0.6 10*3/uL (1.3-4.4); LYMPH % 19.1 % (27.0-41.0); MEAN CELL VOLUME 92.3 fl (81.0-99.0); MEAN CORPUSCULAR HGB 29.2 pg (27.0-31.0); MEAN CORPUSCULAR HGB CONC 31.6 g/dl (33.0-37.0); MEAN PLATELET VOLUME 11.7 fl (9.6-12.3); MONO # 0.1 10*3/uL (0.1-1.0); MONO % 1.8 % (3.0-9.0); NEUT # 2.6 10*3/uL (2.3-7.9); NEUT % 78.2 % (47.0-73.0); PLATELET COUNT AUTOMATED 256 10*3/uL (130-400); RED BLOOD COUNT 4.56 10*6/uL (4.10-5.10); RED CELL DISTRI WIDTH 13.3 % (0-14.5); WHITE BLOOD COUNT 3.3 10*3/uL (4.8-10.8)
[2022-05-19 06:55] VITALS: BP 124/58
[2022-05-19 07:43] VITALS: BP 120/60
[2022-05-19 10:41] VITALS: BP 120/70
[2022-05-19 16:00] VITALS: BP 102/62
[2022-05-19 20:00] VITALS: BP 96/62
[2022-05-20] VITALS: BP 98/52
[2022-05-20 05:42] LABS: BUN 12 mg/dl (7-24); CHLORIDE 117 mmol/L (98-107); CREATININE 0.59 mg/dL (0.55-1.02); POTASSIUM 3.6 mmol/L (3.5-5.1); SODIUM 145 mmol/L (136-145)
[2022-05-20 06:24] LABS: BASO % 0.7 % (0.0-1.0); EOS % 0.7 % (1.0-4.0); HEMATOCRIT 38.4 % (37.0-47.0); LYMPH # 2.9 10*3/uL (1.3-4.4); LYMPH % 48.7 % (27.0-41.0); MEAN CELL VOLUME 91.6 fl (81.0-99.0); MEAN CORPUSCULAR HGB 28.9 pg (27.0-31.0); MEAN CORPUSCULAR HGB CONC 31.5 g/dl (33.0-37.0); MEAN PLATELET VOLUME 11.7 fl (9.6-12.3); MONO # 0.4 10*3/uL (0.1-1.0); MONO % 6.3 % (3.0-9.0); NEUT # 2.6 10*3/uL (2.3-7.9); NEUT % 43.3 % (47.0-73.0); PLATELET COUNT AUTOMATED 283 10*3/uL (130-400); RED BLOOD COUNT 4.19 10*6/uL (4.10-5.10); RED CELL DISTRI WIDTH 13.5 % (0-14.5)
[2022-05-20 08:00] VITALS: BP 114/46
[2022-05-20 12:00] VITALS: BP 100/55
[2022-05-20 16:00] VITALS: BP 110/60
[2022-05-20 20:00] VITALS: BP 90/45
[2022-05-21] VITALS: BP 107/49
[2022-05-21 08:00] VITALS: BP 104/66
[2022-05-21 12:00] VITALS: BP 111/67
[2022-05-21 16:00] VITALS: BP 118/71
[2022-05-21 20:00] VITALS: BP 108/56
[2022-05-22] VITALS: BP 110/62
[2022-05-22 06:15] LABS: BASO % 0.6 % (0.0-1.0); EOS # 0.1 10*3/uL (0.0-0.4); EOS % 2.3 % (1.0-4.0); HEMATOCRIT 38.9 % (37.0-47.0); LYMPH # 2.3 10*3/uL (1.3-4.4); LYMPH % 47.7 % (27.0-41.0); MEAN CELL VOLUME 91.5 fl (81.0-99.0); MEAN CORPUSCULAR HGB 29.2 pg (27.0-31.0); MEAN CORPUSCULAR HGB CONC 31.9 g/dl (33.0-37.0); MEAN PLATELET VOLUME 11.3 fl (9.6-12.3); MONO # 0.3 10*3/uL (0.1-1.0); MONO % 7.1 % (3.0-9.0); NEUT % 42.1 % (47.0-73.0); PLATELET COUNT AUTOMATED 282 10*3/uL (130-400); RED BLOOD COUNT 4.25 10*6/uL (4.10-5.10); RED CELL DISTRI WIDTH 13.5 % (0-14.5); WHITE BLOOD COUNT 4.8 10*3/uL (4.8-10.8)
[2022-05-22 08:00] VITALS: BP 102/62
[2022-05-22] MEDS ORDERED: OMNICEF300 MG PO (10:37)
[2022-05-22] MEDS ORDERED: ZITHROMAX500 MG PO (10:40)
== END 2022-05-22 11:00 | disposition home or self-care (01) | DRG 179 ==
LOC: ED 16:44 → EDHOLD 19:07 → 5E 19:07
PROVIDERS: Emergency Medicine; Internal Medicine; ADMIT Student in an Organized Health Care Education/Training Program; ATTEND Student in an Organized Health Care Education/Training Program
DX: J15.6 Pneumonia due to other Gram-negative bacteria (principal); J20.9 Acute bronchitis, unspecified; E83.41 Hypermagnesemia; E87.8 Other disorders of electrolyte and fluid balance, not elsewhere classified; G62.9 Polyneuropathy, unspecified; R73.9 Hyperglycemia, unspecified; R74.8 Abnormal levels of other serum enzymes; M94.0 Chondrocostal junction syndrome [Tietze]; M79.7 Fibromyalgia; G40.909 Epilepsy, unspecified, not intractable, without status epilepticus; Z88.6 Allergy status to analgesic agent; Z90.710 Acquired absence of both cervix and uterus; Z87.442 Personal history of urinary calculi; Z79.82 Long term (current) use of aspirin; Z79.899 Other long term (current) drug therapy; Z90.49 Acquired absence of other specified parts of digestive tract; Z98.891 History of uterine scar from previous surgery; Z82.49 Family history of ischemic heart disease and other diseases of the circulatory system; Z80.1 Family history of malignant neoplasm of trachea, bronchus and lung; Z98.84 Bariatric surgery status

== ENCOUNTER → 2022-08-07 | Outpatient (CLI) | payer OTHER ==
[~2022-08-07] MED LIST changes: +CLONAZEPAM0.5 M2 PO; +ESOMEPRAZOLE MA40 M1 PO; +LEVETIRACETAM500 MG PO; +NORTRIPTYLINE H10 M1 PO; +OMNICEF300 MG PO; +ONDANSETRON HYDR4 MG PO; +TOPIRAMATE100 M2 PO; +ZITHROMAX500 MG PO
== END | disposition home or self-care (01) ==
LOC: CT 11:00
PROVIDERS: ATTEND Internal Medicine Critical Care Medicine
DX: R91.1 Solitary pulmonary nodule (principal)

== ENCOUNTER 2022-09-17 11:26 | Emergency (ER) | payer OTHER ==
[~2022-09-17] VITALS: Ht 152.4 cm; Wt 63.5 kg
[2022-09-17 11:42] VITALS: BP 147/87
[2022-09-17] MEDS ORDERED: MEDROL DOSEPAK4 MG PO ×2 (12:00→12:29)
== END 2022-09-17 12:00 | disposition home or self-care (01) ==
LOC: ED 11:26
DX: L25.9 Unspecified contact dermatitis, unspecified cause (principal); Z88.8 Allergy status to other drugs, medicaments and biological substances; Z79.899 Other long term (current) drug therapy; Z90.710 Acquired absence of both cervix and uterus; Z90.49 Acquired absence of other specified parts of digestive tract; Z98.890 Other specified postprocedural states; Z87.891 Personal history of nicotine dependence